=== PATIENT | female | born 1945 | race Caucasian/White ===

== ENCOUNTER 2018-09-11 08:35 | Observation (INO) ==
[2018-09-11 08:50] VITALS: TEMP 98.6
[2018-09-11 10:23] VITALS: RESP 16
--- NOTE | 2018-09-11 11:14 | ED ---
HPI General Chief complaint: Skin/Abscess/Foreign Body Stated complaint: fever/poss fluid under incision Time Seen by Provider: 09/11/18 10:53 History of Present Illness HPI narrative: 73-year-old female with a history of CAD with stents, TIA x2, dementia, DDD, chronic low back pain, hypertension, hyperlipidemia is brought to the emergency department by her daughter for evaluation of fever. The patient states that on 09/01/18 she had an implantation of electrodes in her back for nerve stimulation done by Dr. Lugo. Since the procedure did not work to help her symptoms they remove the device 09/09/18. States that 3 days ago when she went into the office for recheck she had a fever of 101 F. States that the doctor thought maybe she had a urinary tract infection and started her on Bactrim that day. States that when he took her to the OR the next day to remove the device he noted there was pus around the surgical site so he irrigated it, gave her IV antibiotics that day and DC'd the Bactrim and placed her on Keflex instead. States that she has had 1.5 days of the Keflex. States that her temperature has been running around 99 until this morning when it was 100.5 F. The patient states that she is feeling okay overall, without any significant pain. Denies any body aches, chills, chest pain, shortness of breath, cough, cold symptoms, nausea, vomiting, diarrhea. No other complaints or concerns. PCP is Dr. Ledesma. Related Data Home Medications Medication Instructions Recorded Confirmed amlodipine 10 mg PO DAILY 08/25/18 09/11/18 aspirin [Adult Low Dose Aspirin] 81 mg PO DAILY 08/25/18 09/11/18 atenolol 25 mg PO BID 08/25/18 09/11/18 donepezil 5 mg PO DAILY 08/25/18 09/11/18 ezetimibe-simvastatin 1 tab PO DAILY 08/25/18 09/11/18 gabapentin 600 mg PO QID 08/25/18 09/11/18 oxycodone 15 mg PO TID 08/25/18 09/11/18 [place] 0.5 ml PO HS 09/11/18 09/11/18 [place] 0.75 ml PO BID PRN 09/11/18 09/11/18 Previous Rx's Medication Instructions Recorded ciprofloxacin HCl [Cipro] 500 mg PO Q12H #14 tab 09/11/18 doxycycline monohydrate 100 mg PO BID #14 cap 09/11/18 Allergies Allergy/AdvReac Type Severity Reaction Status Date / Time No Known Allergies Allergy Verified 09/09/18 11:28 Review of Systems ROS: all other systems reviewed are negative FOR[facility]LY [facility] Medical History Medical History Cognitive impairment (Acute) Coronary artery disease (Acute) DDD (degenerative disc disease), lumbar (Acute) Dementia (Acute) Hx of hysterectomy (Acute) Hyperlipidemia (Acute) Hypertension (Acute) Scoliosis (Acute) TIA (transient ischemic attack) (Acute) Surgical History Surgical History H/O heart artery stent (Acute) History of bladder suspension procedure (Acute) History of carotid endarterectomy (Acute) Hx of cardiac cath (Acute) Status post wrist surgery (Acute) Family History Family History Mother Family history of lung cancer Father Family history of heart disease Social History Social History Substance History: Active Abuse Second Hand Smoke Exposure: No Smoking Status: Never smoker Tobacco Type: Cigarettes How Often Do You Have a Drink Containing Alcohol: Never Recent Travel in [facility] within the Last 8 Weeks: No Recent Out of Country Travel within the Last 8 Weeks: No Substance Abuse Detail Marijuana: Route Used Substance Abuse: Inhalation Substance Abuse Comment: PT USES VAPOR AND DROPS MJ Reason for Use: Calm Down Immunization History Tetanus Immunization: Unsure Exam Narrative Exam Narrative: GENERAL: Well-nourished and well-developed pleasant female patient in no acute distress who is nontoxic appearing. SKIN: Warm and dry without any obvious rashes or lesions. HEAD: Normocephalic and atraumatic. EYES: No injection, drainage, or hyphema noted. PERRLA. EOMI. ENT: No nasal drainage noted. Oropharynx is clear and the TMs are normal with good landmarks. NECK: Supple and the trachea is midline. CARDIOVASCULAR: Regular rate and rhythm. RESPIRATORY: Breath sounds are equal bilaterally with no accessory muscle use, wheezing, rhonchi, or crackles. GASTROINTESTINAL: Abdomen is soft, non-tender, and nondistended. MUSCULOSKELETAL: No obvious deformities, swelling, cyanosis, or ecchymosis is present throughout the upper and lower extremities. Patient has full range of motion without any signs of neurovascular compromise. Distal pulses are 2+ throughout. BACK: Surgical incision with sutures noted over mid lumbar spine with very slight erythema, no warmth, no discharge or drainage. Surgical incision with sutures noted to left lower back with no erythema, warmth, discharge or drainage. No tenderness to palpation. No obvious deformities, bony point tenderness, or crepitus noted throughout the thoracic and lumbar vertebrae. NEUROLOGICAL: Awake, alert, and oriented. Normal speech. Cranial nerves are grossly intact. Course Initial Documented Vital Signs Temperature 98.6 F 09/11/18 08:49 Pulse Rate 61 09/11/18 08:49 Respiratory Rate 14 09/11/18 08:49 Blood Pressure 108/49 L 09/11/18 08:49 Pulse Oximetry 92 L 09/11/18 08:49 Last Documented Vital Signs Temperature 98.6 F 09/11/18 17:26 Pulse Rate 55 L 09/11/18 17:26 Respiratory Rate 16 09/11/18 17:26 Blood Pressure 131/58 L 09/11/18 17:26 Pulse Oximetry 94 L 09/11/18 17:26 Medical Decision Making ORAL Attestation ORAL supervised visit: Yes Attestation: I, Dr. Tony, have reviewed the advance practice practitioner's documentation and am in agreement, met with the patient face to face, made the diagnosis, and the medical decision making was done by me. *My assessment and Findings: This patient presents with fever status post placement and subsequent removal of a spinal nerve stimulator. She was found to have low oxygen saturation at triage. Septic evaluation was initiated along with an evaluation for hypoxia. Lungs are clear. Patient denies dyspnea. She also denies any previous history of lung disease or congestive heart failure. Please see Shana Gallegos PA-C's note for full details of the H&P and disposition. MDM Narrative Medical decision making narrative: 73-year-old female presents to the emergency department for evaluation of fever. Patient is afebrile here in the emergency department. Blood pressure and heart rate are within normal limits. While examining the patient her oxygen saturation dropped to 83% on room air. It remained this low until I had her sit up and take several deep breaths and he came up to 92% on RA. On physical examination she does have very slight erythema to the middle low back surgical wound however there is no drainage noted. IV access is obtained, labs have been drawn and sent. Patient is placed on cardiac telemetry and pulse oximetry monitoring. CBC is unremarkable. CMP shows mild renal insufficiency and slightly elevated LFTs, otherwise unremarkable. Lactic acid is within normal limits. Troponin is less than 0.02. BNP is elevated at 284. Chest x-ray shows cardiomegaly and mild diffuse interstitial prominence at the bases. Urinalysis is unremarkable. CT pulmonary angiogram is negative for PE, shows left posterior chest wall subcutaneous fluid collection with bubbles of gas, nonspecific but of concern for abscess. No other acute abnormalities noted. Patient administered Zosyn 4.5 g IV and vancomycin 1 g IV to cover for abscess. Discussed patient with Dre ROJAS for [facility] who accepts patient for admission under Dr. Villa's service. Medical Screen Exam Complete: Yes Emergency Medical Condition: Yes Differential Diagnosis Differential Diagnosis: Cellulitis versus wound infection versus UTI versus pneumonia Lab Data Result diagrams: 09/11/18 11:50 09/11/18 11:50 Lab Results 09/11/18 09/11/18 09/11/18 Range/Units 11:50 11:50 11:50 CBC w Diff Auto diff final WBC 7.1 (4.0-11.0) th/mm3 RBC 4.15 (4.00-5.30) mil/mm3 Hgb 12.9 (11.6-15.3) gm/dL Hct 38.6 (35.0-46.0) % MCV 93.1 (80.0-100.0) fL MCH 31.1 (27.0-34.0) pg MCHC 33.4 (32.0-36.0) % RDW 13.7 (11.6-17.2) % Plt Count 231 (150-450) th/mm3 MPV 8.0 (7.0-11.0) fL Neut % (Auto) 68.7 (16.0-70.0) % Lymph % (Auto) 18.5 (9.0-44.0) % [place] % (Auto) 9.5 H (0.0-8.0) % Eos % (Auto) 2.5 (0.0-4.0) % Baso % (Auto) 0.8 (0.0-2.0) % Neut # (Auto) 4.8 (1.8-7.7) th/mm3 Lymph # (Auto) 1.3 (1.0-4.8) th/mm3 [place] # (Auto) 0.7 (0.0-0.9) th/mm3 Eos # (Auto) 0.2 (0.0-0.4) th/mm3 Baso # (Auto) 0.1 (0.0-0.2) th/mm3 WBC Differential . Differential Comment . Sodium 141 (136-145) meq/L Potassium 4.4 (3.5-5.1) meq/L Chloride 106 (98-107) meq/L Carbon Dioxide 31.5 (21.0-32.0) meq/L Anion Gap 4 L (5-15) meq/L BUN 22 H (7-18) mg/dL Creatinine 1.00 (0.50-1.00) mg/dL Estimated GFR 54 L (>89) mL/min POC Glucose (68-110) mg/dl Random Glucose 144 H (74-106) mg/dL Lactic Acid 0.8 (0.4-2.0) mmol/L Calcium 8.9 (8.5-10.1) mg/dL Total Bilirubin 0.4 (0.2-1.0) mg/dL AST 46 H (15-37) U/L ALT 63 H (10-53) U/L Alkaline Phosphatase 101 (45-117) U/L Troponin I Less than 0.02 L (0.02-0.05) ng/mL B-Natriuretic Peptide (0-100) pg/mL Total Protein 6.7 (6.4-8.2) g/dL Albumin 3.0 L (3.4-5.0) g/dL Urine Color (Yellw/Straw) Urine Clarity (Clear) Urine pH (5.0-8.5) Ur Specific [place] (1.002-1.035) Urine Protein (Neg-Trace) mg/dL Urine Glucose (UA) (Negative) mg/dL Urine Ketones (Negative) mg/dL Urine Occult Blood (Negative) Urine Nitrate (Negative) Urine Bilirubin (Negative) Urine Urobilinogen (Less than 2) mg/dL Ur Leukocyte Esterase (Negative) Urine RBC (0-3) /hpf Urine WBC (0-5) /hpf Micro UA Comment Ur Microscopic Review Urine Culture Comments 09/11/18 09/11/18 09/11/18 Range/Units 11:50 11:59 13:01 CBC w Diff WBC (4.0-11.0) th/mm3 RBC (4.00-5.30) mil/mm3 Hgb (11.6-15.3) gm/dL Hct (35.0-46.0) % MCV (80.0-100.0) fL MCH (27.0-34.0) pg MCHC (32.0-36.0) % RDW (11.6-17.2) % Plt Count (150-450) th/mm3 MPV (7.0-11.0) fL Neut % (Auto) (16.0-70.0) % Lymph % (Auto) (9.0-44.0) % [place] % (Auto) (0.0-8.0) % Eos % (Auto) (0.0-4.0) % Baso % (Auto) (0.0-2.0) % Neut # (Auto) (1.8-7.7) th/mm3 Lymph # (Auto) (1.0-4.8) th/mm3 [place] # (Auto) (0.0-0.9) th/mm3 Eos # (Auto) (0.0-0.4) th/mm3 Baso # (Auto) (0.0-0.2) th/mm3 WBC Differential Differential Comment Sodium (136-145) meq/L Potassium (3.5-5.1) meq/L Chloride (98-107) meq/L Carbon Dioxide (21.0-32.0) meq/L Anion Gap (5-15) meq/L BUN (7-18) mg/dL Creatinine (0.50-1.00) mg/dL Estimated GFR (>89) mL/min POC Glucose 141 H (68-110) mg/dl Random Glucose (74-106) mg/dL Lactic Acid (0.4-2.0) mmol/L Calcium (8.5-10.1) mg/dL Total Bilirubin (0.2-1.0) mg/dL AST (15-37) U/L ALT (10-53) U/L Alkaline Phosphatase (45-117) U/L Troponin I (0.02-0.05) ng/mL B-Natriuretic Peptide 284 H (0-100) pg/mL Total Protein (6.4-8.2) g/dL Albumin (3.4-5.0) g/dL Urine Color Yellow (Yellw/Straw) Urine Clarity Clear (Clear) Urine pH 6.0 (5.0-8.5) Ur Specific [place] 1.020 (1.002-1.035) Urine Protein Negative (Neg-Trace) mg/dL Urine Glucose (UA) Negative (Negative) mg/dL Urine Ketones Negative (Negative) mg/dL Urine Occult Blood Negative (Negative) Urine Nitrate Negative (Negative) Urine Bilirubin Negative (Negative) Urine Urobilinogen 0.2 (Less than 2) mg/dL Ur Leukocyte Esterase Negative (Negative) Urine RBC 0-3 (0-3) /hpf Urine WBC 0-5 (0-5) /hpf Micro UA Comment Culture not ind Ur Microscopic Review Microscopic reviewed Urine Culture Comments Culture not ind Imaging Data Radiologist's impression: Chest X-Ray 09/11/18 11:10 CONCLUSION: Cardiomegaly and mild diffuse interstitial prominence at the bases. Chest CTA 09/11/18 12:41 CONCLUSION: 1. No pulmonary embolus. 2. Coronary artery calcification. 3. Left posterior chest wall subcutaneous fluid collection with bubbles of gas , nonspecific but of concern for abscess. 4. Small hiatal hernia. 5. Chronic left thoracic cage deformity. 6. Scoliosis. ECG Data EKG Prior to Arrival: No Attestation: I personally reviewed and interpreted this ECG as follows: (Sinus rhythm with a rate of 51. No STT wave changes.) Discharge Plan Discharge Disposition Patient Disposition: 30 Still Patient Discharge Condition Condition: Stable Discharge Order Discharge Orders: Discharge Order (Routine); Ordered 09/11/18 Ordered By: Dre Blank Discharge Details Anticipated Discharge Date: 09/11/18 Diagnosis: Hypoxia, Abscess Physicians Team ED Provider: Dasha Tony ED Midlevel Provider: Shana Gallegos Primary Care Provider: Rakesh Ledesma Attending Provider: Sharee Villa Status ED Status: Left Department Discharge Information Discharge Date/Time: 09/11/18 17:28
--- NOTE | 2018-09-11 11:43 | XR ---
EXAM DATE: 09/11/2018 11:37 AM EST AGE/SEX: 73 years / Female INDICATIONS: Fever, surgery to remove spinal stimulator 3 days ago CLINICAL DATA: This is the patient's initial encounter. Patient reports that signs and symptoms have been present for 3 days and indicates a pain score of 0/10. MEDICAL/SURGICAL HISTORY: None. None. COMPARISON: No prior exams available for comparison. FINDINGS: Cardiomegaly and mild diffuse interstitial prominence in the lower lobes. Aortic calcification. No co nsolidation or effusion. Osseous structures demonstrate degenerative changes and dextroscoliosis. CONCLUSION: Cardiomegaly and mild diffuse interstitial prominence at the bases. Electronically signed by: Bryant Moran MD 09/11/2018 11:41 AM EST
[2018-09-11 12:05] LABS: Baso # (Auto) 0.1 th/mm3 (0.0-0.2); Baso % (Auto) 0.8 % (0.0-2.0); Eos # (Auto) 0.2 th/mm3 (0.0-0.4); Eos % (Auto) 2.5 % (0.0-4.0); Hematocrit 38.6 % (35.0-46.0); Hemoglobin 12.9 gm/dL (11.6-15.3); Lymph # (Auto) 1.3 th/mm3 (1.0-4.8); Lymph % (Auto) 18.5 % (9.0-44.0); Mean Corpuscular HGB Conc 33.4 % (32.0-36.0); Mean Corpuscular Hemoglobin 31.1 pg (27.0-34.0); Mean Corpuscular Volume 93.1 fL (80.0-100.0); Mono # (Auto) 0.7 th/mm3 (0.0-0.9); Mono % (Auto) 9.5 % (0.0-8.0); Neut # (Auto) 4.8 th/mm3 (1.8-7.7); Neut % (Auto) 68.7 % (16.0-70.0); Platelet Count 231 th/mm3 (150-450); Red Blood Count 4.15 mil/mm3 (4.00-5.30); Red Cell Distribution Width 13.7 % (11.6-17.2); White Blood Count 7.1 th/mm3 (4.0-11.0)
[2018-09-11 12:13] LABS: Chloride 106 meq/L (98-107); Potassium 4.4 meq/L (3.5-5.1); Sodium 141 meq/L (136-145)
[2018-09-11 12:16] LABS: Calcium 8.9 mg/dL (8.5-10.1)
[2018-09-11 12:17] LABS: Anion Gap 4 meq/L (5-15); Blood Urea Nitrogen 22 mg/dL (7-18); Carbon Dioxide 31.5 meq/L (21.0-32.0); Glucose,Random 144 mg/dL (74-106)
[2018-09-11 12:20] LABS: Alanine Aminotransferase 63 U/L (10-53); Aspartate Aminotransferase 46 U/L (15-37); Glomerular Filtration Rate 54 mL/min (>89)
[2018-09-11 12:22] LABS: Total Protein 6.7 g/dL (6.4-8.2)
[2018-09-11 12:23] LABS: Alkaline Phosphatase 101 U/L (45-117)
--- NOTE | 2018-09-11 13:03 | ECG ---
Date Performed: 09/11/2018 Time Performed: 12:16:23 PTAGE: 73 years EKG: SINUS BRADYCARDIA BORDERLINE ECG No significant change from prior electrocardiogram. PREVIOUS TRACING : 08/25/2018 14.07 DOCTOR: Myles Harmon Interpretating Date/Time 09/11/2018 13:01:43
[2018-09-11 13:12] LABS: Bilirubin,Urine Negative (Negative); Clarity,Urine Clear (Clear); Color,Urine Yellow (Yellw/Straw); Glucose,Urine (UA) Negative (Negative); Leukocyte Esterase,Urine Negative (Negative); Nitrite,Urine Negative (Negative); Urobilinogen,Urine 0.2 mg/dL (Less than 2)
[2018-09-11 13:16] LABS: RBC,Urine 0-3 /hpf (0-3)
[2018-09-11 13:17] LABS: WBC,Urine 0-5 /hpf (0-5)
--- NOTE | 2018-09-11 14:22 | CT ---
EXAM DATE: 09/11/2018 2:06 PM EST AGE/SEX: 73 years / Female INDICATIONS: Embolism CLINICAL DATA: This is the patient's initial encounter. Patient reports that signs and symptoms have been present for 2 days and indicates a pain score of 4/10. MEDICAL/SURGICAL HISTORY: Transient ischemic attack. Hysterectomy. Heart artery stents, Cardiac cat heterization RADIATION DOSE: 13.59 CTDI (mGy) COMPARISON: No prior exams available for comparison. TECHNIQUE: Volumetric scanning was performed using a multi-row detector CT scanner during bolus infu yanira of 73ML ml Omnipaque 350 (iohexol) nonionic water-soluble contrast as a single exam dose. The d leon was post processed with a variety of visualization algorithms including full volume maximum inten sity projection and sliding thin slab reformation. Using automated exposure control and adjustment o f the mA and/or kV according to patient size, radiation dose was kept as low as reasonably achievable to obtain optimal diagnostic quality images. DICOM format image data is available electronically fo r review and comparison. FINDINGS: No pulmonary embolus demonstrated. Heart size within normal limits. Coronary artery calcification noted. No infiltrate, effusion or pneumothorax. Old, healed left rib fractures and possible previous thoraco katia with mild scarring noted. Patient has scoliosis. There is a small hiatal hernia. At the level of the thoracolumbar junction is a subcutaneous fluid collection of the left posterior c hest wall. Fluid collection measures 2.9 x 7.7 cm in greatest transaxial dimension and at least 6 cm craniocaudal; the inferior margin is not included on the study. Bubbles of gas are present within the collection. CONCLUSION: 1. No pulmonary embolus. 2. Coronary artery calcification. 3. Left posterior chest wall subcutaneous fluid collection with bubbles of gas, nonspecific but of c oncern for abscess. 4. Small hiatal hernia. 5. Chronic left thoracic cage deformity. 6. Scoliosis. Electronically signed by: Andrew Silva MD 09/11/2018 2:20 PM EST
[2018-09-11] MEDS ORDERED: Vancomycin Inj 1,000 MG in Sodium Chlor 0.9% Inj 250 ML IV.SIG ONE (14:34)
[2018-09-11] MEDS ORDERED: Piperacil/Tazo 4.5 GM Premix 4.5 GM/100 ML BAG IV.SIG ONE (14:34)
[2018-09-11] MEDS ORDERED: Bisacodyl 10 MG Supp RECTAL PRN (14:51)
[2018-09-11] MEDS ORDERED: Acetaminophen 325 MG Tablet PO PRN (14:51)
[2018-09-11] MEDS ORDERED: Sod Chloride 0.9% Inj 1,000 ML IV.CONT SCH (15:00)
--- NOTE | 2018-09-11 15:26 | P.HP ---
History of Present Illness Primary Care Physician: Rakesh Ledesma Chief Complaint: Fever History of Present Illness: 73-year-old female with known history of hypertension, hyperlipidemia, dementia , chronic back pain, TIA who presented to the hospital for fever. Patient has been undergoing outpatient management with Dr. Lugo for nerve stimulator. She had implantation performed with external device. The device did not work so they went back to Dr. Lugo and he removed the wires. When he went to remove the wires a told me that he mentioned that there may have been a little pus in the pocket so he prescribed her medication. He notified him that if she had a fever then she needed to contact the office for further evaluation and management. Patient was in a normal state of health. Take medications as she is supposed to. This morning they noticed she had a fever of 100.5 so they brought her to the hospital for evaluation. Patient did not have any fever during her hospital visit. No leukocytosis. No lactic acidosis. Patient apparently had an episode of hypoxia with her O2 sats dropping to 83%. Patient was not on any monitor in order to evaluate if there was a true waveform. Patient was placed on oxygen and her O2 saturation went to 98%. Patient had further workup with chest x-ray was unremarkable. CT scan of the chest was performed which did not indicate any pulmonary emboli or any pleural abnormality. There was noted a subcutaneous fluid collection noted at the site of where she had the spinal stimulator removed. Which is nonspecific but could be concern of abscess. Because of the hypoxia is recommended that the patient be observed in the hospital for further evaluation and management. The patient denies any shortness of breath, cough, congestion, phlegm production, chest pain , dyspnea. Patient does have history of tobacco use and she quit over 30 years ago. - Diagnosis (1) Hypoxia Review of Systems All other systems reviewed negative except as stated in HPI Constitutional: Reports fever(s) PMFSH - History History Provided By: Patient, Family Member - Medical History Medical History: Medical History (Last Updated 09/11/18 @ 15:23 by BOB Clayton) Coronary artery disease Dementia Hyperlipidemia Hypertension Cognitive impairment DDD (degenerative disc disease), lumbar Hx of hysterectomy Scoliosis TIA (transient ischemic attack) - Surgical History Surgical History: Surgical History (Last Updated 09/11/18 @ 15:23 by BOB Clayton) Status post wrist surgery H/O heart artery stent History of bladder suspension procedure History of carotid endarterectomy Hx of cardiac cath - Family History Family History: Family History (Last Updated 09/11/18 @ 15:23 by BOB Clayton) Mother Family history of lung cancer Father Family history of heart disease - Tobacco History Second Hand Smoke Exposure: No Tobacco Use In Past 30 Days: No Smoking Status: Never smoker - Alcohol History How Often Do You Have a Drink Containing Alcohol: Never - Substance Use History Substance History: Active Abuse - Substance Use Type Marijuana Route Used: Inhalation Reason for Use: Calm Down Comment: PT USES VAPOR AND DROPS MJ - Travel History Recent Travel in the [place] Within the Last 8 Weeks: No Recent Travel Out of the Country Within the Last 8 Weeks: No - Immunization History Tetanus Immunization: Unsure Medications and Allergies Active Medications: Active Medications Acetaminophen (Tylenol) 650 mg PO Q4H PRN PRN Reason: Temp > 100.4 Al Hydroxide/Mg Hydroxide (Milk Of Magnesia Liq) 30 ml PO Q12H PRN PRN Reason: Mild Constipation Albuterol (Duoneb Neb (Prn)) 1 ampul NEB Q2HR NEB PRN PRN Reason: SHORTNESS OF BREATH/WHEEZING Albuterol (Duoneb Neb (Mercedes)) 1 ampul NEB Q6HR WHILE AWAKE NEB MERCEDES Amlodipine Besylate (Norvasc) 10 mg PO DAILY MERCEDES Aspirin (Ecotrin) 81 mg PO DAILY MERCEDES Atenolol (Tenormin) 25 mg PO BID MER[place] Bisacodyl (Dulcolax Supp) 10 mg RECTAL DAILY PRN PRN Reason: SEVERE CONSITIPATION Donepezil HCl (Aricept) 5 mg PO DAILY [place]ED[place] Ezetimibe (Zetia) 10 mg PO DAILY [place]ED[place] Gabapentin (Neurontin) 600 mg PO QID [place] Vancomycin HCl 1,000 mg/ (Sodium Chloride) 250 mls @ 250 mls/hr IV.SIG ONCE ONE Stop: 09/11/18 15:33 Sodium Chloride (Ns Inj) 1,000 mls @ 100 mls/hr IV.CONT .Q10H [place]EDES Lactulose (Lactulose Liq) 30 ml PO DAILY PRN PRN Reason: SEVERE CONSITIPATION Ondansetron HCl (Zofran Inj) 4 mg IV.PUSH Q6H PRN PRN Reason: NAUSEA OR VOMITING Oxycodone HCl (Roxicodone) 15 mg PO TID [facility] Pravastatin Sodium (Pravachol) 40 mg PO DAILY [facility] Senna/Docusate Sodium (Sherry-Colace) 1 tab PO BID [facility] Sennosides (Senokot) 17.2 mg PO Q12H PRN PRN Reason: Moderate Constipation Temazepam (Restoril) 15 mg PO HS PRN PRN Reason: INSOMNIA Allergies Allergy/AdvReac Type Severity Reaction Status Date / Time No Known Allergies Allergy Verified 09/09/18 11:28 Home Medications Medication Instructions Recorded Confirmed Type amlodipine 10 mg PO DAILY 08/25/18 09/11/18 History aspirin [Adult Low Dose Aspirin] 81 mg PO DAILY 08/25/18 09/11/18 History atenolol 25 mg PO BID 08/25/18 09/11/18 History donepezil 5 mg PO DAILY 08/25/18 09/11/18 History ezetimibe-simvastatin 1 tab PO DAILY 08/25/18 09/11/18 History gabapentin 600 mg PO QID 08/25/18 09/11/18 History oxycodone 15 mg PO TID 08/25/18 09/11/18 History Keflex 500 mg PO TID 09/11/18 09/11/18 History [place] Serene 0.5 ml PO HS 09/11/18 09/11/18 History [place] Serene 0.75 ml PO BID PRN 09/11/18 09/11/18 History Exam Vital signs: Vital Signs 09/11/18 08:49 09/11/18 09:45 09/11/18 10:17 Temperature 98.6 F 98.6 F 98.6 F Pulse Rate 61 61 Respiratory Rate 14 16 16 Blood Pressure 108/49 L 108/49 L Pulse Oximetry 92 L 83 L 83 L 09/11/18 11:30 09/11/18 12:00 Temperature Pulse Rate 54 L 55 L Respiratory Rate 16 16 Blood Pressure 107/47 L 116/63 Pulse Oximetry 98 97 Intake & Output 09/10/18 09/11/18 09/11/18 18:59 06:59 18:59 Weight 71.4 kg Narrative: GENERAL: Well-developed, well-nourished, in no acute distress. alert and orientated HEENT: Head is normocephalic without any lesions or masses noted. Facial features are symmetric. Eyes: Pupils equal round reactive to light. Extraocular muscles are intact. Conjunctivae were clear. Oropharyngeal: Pharynx without any erythema edema. Tongue is midline without deviation. Buccal mucosa is moist without any masses or lesions NECK: Supple without any masses. Trachea midline no deviation. No JVD, no bruits are appreciated CARDIAC: Regular rhythm, regular rate. S1/S2 are heard. No murmurs gallops or rubs. LUNGS: Clear to auscultation bilaterally. No wheeze, rhonchi or rales. No use of accessory muscles on inspiration or expiration. ABDOMEN: Soft, nontender. Nondistended. Bowel sounds heard in all 4 quadrants. No organomegaly or masses. Negative rebound, negative guarding EXTREMITIES: No edema, pulses are equal bilaterally. No cyanosis or clubbing NEUROLOGY: Mood and affect appear appropriate. Cranial nerves II through XII grossly intact. Muscle strength 5/5 in upper and lower extremities bilaterally. Deep tendon reflexes are 2+ in upper and lower extremities bilaterally. Results - Labs CBC & Chem 7: 09/11/18 11:50 09/11/18 11:50 Labs: Laboratory Results - last 24 hr 09/11/18 09/11/18 09/11/18 11:50 11:50 11:50 CBC w Diff Auto diff final WBC 7.1 RBC 4.15 Hgb 12.9 Hct 38.6 MCV 93.1 MCH 31.1 MCHC 33.4 RDW 13.7 Plt Count 231 MPV 8.0 Neut % (Auto) 68.7 Lymph % (Auto) 18.5 Carter % (Auto) 9.5 H Eos % (Auto) 2.5 Baso % (Auto) 0.8 Neut # (Auto) 4.8 Lymph # (Auto) 1.3 Carter # (Auto) 0.7 Eos # (Auto) 0.2 Baso # (Auto) 0.1 WBC Differential . Differential Comment . Sodium 141 Potassium 4.4 Chloride 106 Carbon Dioxide 31.5 Anion Gap 4 L BUN 22 H Creatinine 1.00 Estimated GFR 54 L POC Glucose Random Glucose 144 H Lactic Acid 0.8 Calcium 8.9 Total Bilirubin 0.4 AST 46 H ALT 63 H Alkaline Phosphatase 101 Troponin I Less than 0.02 L B-Natriuretic Peptide Total Protein 6.7 Albumin 3.0 L Urine Color Urine Clarity Urine pH Ur Specific [place] Urine Protein Urine Glucose (UA) Urine Ketones Urine Occult Blood Urine Nitrate Urine Bilirubin Urine Urobilinogen Ur Leukocyte Esterase Urine RBC Urine WBC Micro UA Comment Ur Microscopic Review Urine Culture Comments 09/11/18 09/11/18 09/11/18 11:50 11:59 13:01 CBC w Diff WBC RBC Hgb Hct MCV MCH MCHC RDW Plt Count MPV Neut % (Auto) Lymph % (Auto) Carter % (Auto) Eos % (Auto) Baso % (Auto) Neut # (Auto) Lymph # (Auto) Carter # (Auto) Eos # (Auto) Baso # (Auto) WBC Differential Differential Comment Sodium Potassium Chloride Carbon Dioxide Anion Gap BUN Creatinine Estimated GFR POC Glucose 141 H Random Glucose Lactic Acid Calcium Total Bilirubin AST ALT Alkaline Phosphatase Troponin I B-Natriuretic Peptide 284 H Total Protein Albumin Urine Color Yellow Urine Clarity Clear Urine pH 6.0 Ur Specific [place] 1.020 Urine Protein Negative Urine Glucose (UA) Negative Urine Ketones Negative Urine Occult Blood Negative Urine Nitrate Negative Urine Bilirubin Negative Urine Urobilinogen 0.2 Ur Leukocyte Esterase Negative Urine RBC 0-3 Urine WBC 0-5 Micro UA Comment Culture not ind Ur Microscopic Review Microscopic reviewed Urine Culture Comments Culture not ind - Imaging Impressions Chest X-Ray 09/11/18 11:10 CONCLUSION: Cardiomegaly and mild diffuse interstitial prominence at the bases. Chest CTA 09/11/18 12:41 CONCLUSION: 1. No pulmonary embolus. 2. Coronary artery calcification. 3. Left posterior chest wall subcutaneous fluid collection with bubbles of gas , nonspecific but of concern for abscess. 4. Small hiatal hernia. 5. Chronic left thoracic cage deformity. 6. Scoliosis. Caprini VTE Risk Assessment Caprini VTE Risk Assessment: Moderate/High Risk (score >= 2) Caprini Risk Assessment Model: Point Value = 1 Point Value = 2 Point Value = 3 Point Value = 5 Age 41-60 Minor surgery BMI > 25 kg/m2 Swollen legs Varicose veins or History of unexplained or recurrent spontaneous Oral contraceptives or hormone replacement Sepsis (< 1 month) Serious lung disease, including pneumonia (< 1 month) Abnormal pulmonary function Acute myocardial infarction Congestive heart failure (< 1 month) History of inflammatory bowel disease Medical patient at bed rest Age 61-74 Arthroscopic surgery Major open surgery (> 45 min) Laparoscopic surgery (> 45 min) Malignancy Confined to bed (> 72 hours) Immobilizing plaster cast Central venous access Age >= 75 History of VTE Family history of VTE Factor V Leiden Prothrombin [id number] Lupus anticoagulant Anticardiolipin antibodies Elevated serum homocysteine Heparin-induced thrombocytopenia Other congenital or acquired thrombophilia Stroke (< 1 month) Elective arthroplasty Hip, pelvis, or leg fracture Acute spinal cord injury (< 1 month) Prophylaxis Regimen: Total Risk Factor Score Risk Level Prophylaxis Regimen 0-1 Low Early ambulation 2 Moderate Order ONE of the following: *Sequential Compression Device (SCD) *Heparin 5000 units SQ BID 3-4 Higher Order ONE of the following medications: *Heparin 5000 units SQ TID *Enoxaparin/Lovenox 40 mg SQ daily (WT < 150 kg, CrCl > 30 mL/min) *Enoxaparin/Lovenox 30 mg SQ daily (WT < 150 kg, CrCl > 10-29 mL/min) *Enoxaparin/Lovenox 30 mg SQ BID (WT < 150 kg, CrCl > 30 mL/min) AND/OR *Sequential Compression Device (SCD) 5 or more Highest Order ONE of the following medications: *Heparin 5000 units SQ TID (Preferred with Epidurals) *Enoxaparin/Lovenox 40 mg SQ daily (WT < 150 kg, CrCl > 30 mL/min) *Enoxaparin/Lovenox 30 mg SQ daily (WT < 150 kg, CrCl > 10-29 mL/min) *Enoxaparin/Lovenox 30 mg SQ BID (WT < 150 kg, CrCl > 30 mL/min) AND *Sequential Compression Device (SCD) Assessment and Plan - Assessment (1) Hypoxia Code(s): R09.02 - Hypoxemia Status: Acute - Plan Hypoxia, unknown etiology -Chest x-ray, CTA of the chest did not indicate any pleural abnormalities, pulmonary emboli -Continue O2 supplementation to maintain O2 sats greater than 92% -Start incentive spirometry -Duo nebs every 6 hours while awake and every 2 hours as needed -Home oxygen walk study -Patient was evaluated by respiratory therapy, patient was given nebulizer treatment, was trained on and perform incentive spirometry. After the procedures were performed patient had walk study done and during exercise her O2 sat was 94%. At rest with no oxygen patient had 98% O2 saturation. -Since we are unable to produce any further hypoxia. It was discussed with the family that we can plan to discharge her home and they are all in agreement at this time. Postsurgical area seroma versus abscess -No signs of sepsis at this time -Continue broad-spectrum antibiotics -Patient will require outpatient management by Dr. Lugo Hypertension, hyper lipidemia, dementia, chronic back pain -Home medications have been continued DVT prevention -Sequential compression devices Discharge Planning: Discharge home in stable condition Activity: Ad kimberly. Diet: Healthy heart diet Medication per medication reconciliation Follow-up with primary medical doctor in 1 week
[2018-09-11 17:13] VITALS: PULSE 55
[2018-09-11 17:27] VITALS: BP 131/58; O2SAT 94
[2018-09-11] MEDS ORDERED: Gabapentin 300 MG Capsule PO SCH (18:00)
[2018-09-11] MEDS ORDERED: Temazepam 15 MG Capsule PO PRN (21:00)
[2018-09-11] MEDS ORDERED: Senna/Docusate Sodium 8.6/50 MG Tablet PO SCH (21:00)
[2018-09-11] MEDS ORDERED: Atenolol 25 MG Tablet PO SCH (21:00)
[2018-09-12] MEDS ORDERED: Ezetimibe 10 MG Tablet PO SCH (09:00)
[2018-09-12] MEDS ORDERED: amLODIPine 10 MG Tablet PO SCH (09:00)
== END 2018-09-11 17:22 | disposition home or self-care (01) ==
LOC: PHEDA 08:35 → PHED 08:35 → PHEDA 17:28
PROVIDERS: ADMIT Hospitalist; ATTEND Hospitalist